=== PATIENT | male | born 1990 | race Two or more races ===

== ENCOUNTER 2020-10-27 08:51 | Emergency (ER) | payer MEDICAID, OTHER ==
[~2020-10-27] VITALS: Ht 172.7 cm; Wt 117.9 kg
[2020-10-27 10:07] VITALS: BP 143/95
[2020-10-27] MEDS ORDERED: HYDROcodone-ACET 5/325MG TAB PO ONE (12:15)
== END 2020-10-27 12:30 | disposition home or self-care (01) ==
LOC: ER 08:51
DX: S92.421A Displaced fracture of distal phalanx of right great toe, initial encounter for closed fracture (principal); W20.8XXA Other cause of strike by thrown, projected or falling object, initial encounter; Y93.89 Activity, other specified; Y92.89 Other specified places as the place of occurrence of the external cause; Y99.8 Other external cause status
CPT/HCPCS: 73630; 99283; L3260

== ENCOUNTER 2023-10-27 17:01 | Emergency (ER) | payer MEDICAID ==
[~2023-10-27] VITALS: Ht 172.7 cm; Wt 113.2 kg
[2023-10-27 18:01] LABS: Urine Bacteria None Seen /hpf (None Seen)
[2023-10-27 18:15] LABS: Urine Blood Negative /uL (Negative); Urine Clarity Clear (Clear); Urine Color Light-Yellow (Yellow); Urine Mucus FEW (None Seen); Urine Protein, UAD Negative (Negative); Urine Specific Gravity 1.017 (1.001-1.035); Urine Urobilinogen Normal (Negative); Urine WBC <1 /hpf (0 - 3); Urine pH 5.5 (5.0-9.0)
[2023-10-27 21:02] LABS: Basophils # (auto) 0 10 ^3/uL (0-0.2); Basophils % (auto) 0.4 % (0.0-2.0); Eosinophils # (auto) 0.2 10 ^3/uL (0-0.8); Eosinophils % (auto) 2.7 % (0.0-7.0); Hematocrit 47.3 % (41.0-53.0); Hemoglobin 16.4 g/dL (13.5-17.5); Lymphocytes % (auto) 32.8 % (10.0-50.0); Mean Corpuscular Hgb Conc. 34.6 g/dL (32.0-36.0); Mean Corpuscular Volume 86.8 fL (80.0-100.0); Monocytes # (auto) 0.7 10 ^3/uL (0-1.3); Neutrophils # (auto) 5.1 10 ^3/uL (1.6-8.6); Neutrophils % (auto) 56.1 % (37.0-80.0); Nucleated Red Blood Cells % 0.1 %; Red Blood Cells 5.45 10^6/uL (4.5-5.90); Red Cell Distribution Width 13.6 % (11.8-14.3); White Blood Cell 9.1 10^3/uL (4.4-10.8)
[2023-10-27 21:23] LABS: Alanine Aminotransferase 52 U/L (7-40); Albumin 4.7 g/dL (3.2-4.8); Alkaline Phosphatase 108 U/L (46-116); Anion Gap 8 (5-15); Aspartate Aminotransferase 27 U/L (13-40); BUN/Creatinine Ratio 8.5 (10.0-20.0); Bilirubin, Total 0.6 mg/dL (0.2-1.0); Blood Urea Nitrogen 7 mg/dL (9-23); Carbon Dioxide 26 mmol/L (20-30); Chloride 100 mmol/L (98-107); Glucose 229 mg/dL (74-106); Lipase 67 U/L (12-53); Potassium 3.7 mmol/L (3.5-5.1); Sodium 134 mmol/L (136-145); Total Protein 8.1 g/dL (5.7-8.2)
[2023-10-27] MEDS ORDERED: DICY10CA PO (21:34)
[2023-10-27] MEDS ORDERED: ZOFR4T PO (21:34)
[2023-10-27] MEDS ORDERED: AUG875T PO (21:34)
[2023-10-27] MEDS: PANTOPRAZOLE 40 MG/10 ML VIAL INJ IV ONE (21:56)
[2023-10-27] MEDS: SODIUM CHLORIDE 0.9% 1,000 ML IV ONE (21:56)
[2023-10-27] MEDS: ONDANSETRON HCL 4 MG/2 ML VIAL IV ONE (21:57)
[2023-10-27] MEDS: HYDROcodone-ACET 5/325MG TAB PO ONE (22:03)
[2023-10-27 22:06] VITALS: BP 141/94; PULSE 88; RESP 12; TEMP 98.4; O2SAT 97
== END 2023-10-27 21:31 | disposition home or self-care (01) ==
LOC: ER 17:01
DX: K57.90 Diverticulosis of intestine, part unspecified, without perforation or abscess without bleeding (principal); K76.0 Fatty (change of) liver, not elsewhere classified; I10 Essential (primary) hypertension
CPT/HCPCS: 36415; 74176; 80053; 81001; 83690; 85025